=== PATIENT | male | born 1980 | race African-American/Black ===

== ENCOUNTER 2020-04-08 04:32 | Emergency (ER) | payer SELFPAY ==
[~2020-04-08] VITALS: Ht 185.4 cm; Wt 108.9 kg
--- NOTE | 2020-04-08 05:45 | NUR ---
PT BIBSELF C/O MIDEPIGASTRIC PAIN X2 WEEKS. PT AAOX4. RESPIRATIONS EVEN AND UNLABORED. SKIN WARM AND INTACT. VITAL SIGNS STABLE. NO ACUTE DISTRESS NOTED AT THIS TIME. PENDING MD MARSHALL, WILL CONTINUE TO MONITOR
[2020-04-08] MEDS ORDERED: LIDOCAINE VISCOUS 2% UD 15 ML UDC ONE (06:24)
[2020-04-08] MEDS ORDERED: MAG HYDROX/AL HYDROX/SIMETH 30 ML UDC ONE (06:24)
[2020-04-08] MEDS ORDERED: FAMOTIDINE/PF INJ 20 MG/2 ML VIAL IV ONE (06:25)
--- NOTE | 2020-04-08 06:31 | NUR ---
IV INITIATED R HAND 20G. LABS DRAWN FROM SITE. TUBE COVERER AT BEDSIDE FOR COLLECTION. IV INTACT AND PATENT, PLACED ON SALINE LOCK
[2020-04-08] MEDS: LIDOCAINE VISCOUS 2% UD 15 ML UDC MM ONE (06:35)
[2020-04-08] MEDS: MAG HYDROX/AL HYDROX/SIMETH 30 ML UDC PO ONE (06:35)
[2020-04-08] MEDS: FAMOTIDINE/PF INJ 20 MG/2 ML VIAL IV ONE (06:37)
--- NOTE | 2020-04-08 06:38 | NUR ---
RADIOLOGY AT BEDSIDE FOR XRAY
[2020-04-08 06:42] LABS: BASOPHILS % (AUTO) 0.7 % (0.0-2.0); EOSINOPHILS % (AUTO) 3.8 % (0.0-6.0); HEMATOCRIT 37 % (39-51); HEMOGLOBIN 11.8 g/dL (13.5-17.5); LYMPHOCYTES # (AUTO) 1.3 /CMM (0.8-4.8); LYMPHOCYTES % (AUTO) 37.5 % (20.0-44.0); MEAN CORPUSCULAR HGB CONC 32 g/dl (31.0-36.0); MEAN CORPUSCULAR VOLUME 81 fL (80-96); MONOCYTES # (AUTO) 0.3 /CMM (0.1-1.30); MONOCYTES % (AUTO) 9.3 % (2.0-12.0); NEUTROPHILS # (AUTO) 1.7 /CMM (1.8-8.9); NEUTROPHILS % (AUTO) 48.7 % (43.0-81.0); PLATELET COUNT (AUTO) 230 /CMM (150-450); RED BLOOD CELL COUNT(AUTO) 4.49 MIL/uL (4.5-6.0); WHITE BLOOD COUNT (AUTO) 3.5 K/uL (4.3-11.0)
[2020-04-08 06:54] LABS: ALBUMIN 3.3 g/dL (3.4-5.0); BILIRUBIN,DIRECT 0.1 mg/dL (0.0-0.2); BILIRUBIN,TOTAL 0.5 mg/dL (0.2-1.0); CALCIUM, SERUM 8.5 mg/dL (8.5-10.1); CREATININE 0.9 mg/dL (0.6-1.3); POTASSIUM 3.8 mmol/L (3.5-5.1); TOTAL PROTEIN, SERUM 6.8 g/dL (6.4-8.2)
[2020-04-08 07:36] VITALS: BP 127/89
--- NOTE | 2020-04-08 07:36 | NUR ---
Patient discharged to home in stable condition. Written and verbal after care instructions given. Patient verbalizes understanding of instruction.IV removed. Catheter intact and site benign. Pressure and 4x4 applied to site. No bleeding noted.Pt ambulatory with a steady gait
== END 2020-04-08 07:37 | disposition home or self-care (01) ==
LOC: ER 04:32
DX: R10.13 Epigastric pain (principal); F15.10 Other stimulant abuse, uncomplicated
CPT/HCPCS: 36415; 71045; 80048; 80076; 83690; 85025; 96374; 99284; J3490

== ENCOUNTER 2020-07-19 12:57 | Emergency (ER) | payer SELFPAY ==
[~2020-07-19] VITALS: Ht 185.4 cm; Wt 99.8 kg
--- NOTE | 2020-07-19 13:20 | NUR ---
EPIGASTRIC PAIN SINCE LAST NIGHT. TOOK PEPCID W/ NO RELIEF. PATIENT A/OX4, BREATHING EVEN AND UNLABORED, NO SOB NOTED. NEEDS ATTENDED. PLACED ON THE WATER SUPPLY ENGINEER.
[2020-07-19 14:05] LABS: BASOPHILS % (AUTO) 0.7 % (0.0-2.0); EOSINOPHILS % (AUTO) 2.1 % (0.0-6.0); HEMATOCRIT 33 % (39-51); HEMOGLOBIN 10.3 g/dL (13.5-17.5); MEAN CORPUSCULAR HGB CONC 32 g/dl (31.0-36.0); MEAN CORPUSCULAR VOLUME 77 fL (80-96); MONOCYTES # (AUTO) 0.2 /CMM (0.1-1.30); MONOCYTES % (AUTO) 6.6 % (2.0-12.0); NEUTROPHILS # (AUTO) 2.2 /CMM (1.8-8.9); NEUTROPHILS % (AUTO) 61.6 % (43.0-81.0); PLATELET COUNT (AUTO) 266 /CMM (150-450); RED BLOOD CELL COUNT(AUTO) 4.26 MIL/uL (4.5-6.0); WHITE BLOOD COUNT (AUTO) 3.6 K/uL (4.3-11.0)
[2020-07-19 14:18] LABS: ALBUMIN 3.2 g/dL (3.4-5.0); BILIRUBIN,DIRECT 0.1 mg/dL (0.0-0.2); BILIRUBIN,TOTAL 0.5 mg/dL (0.2-1.0); CALCIUM, SERUM 8.6 mg/dL (8.5-10.1); CREATININE 0.9 mg/dL (0.6-1.3); POTASSIUM 3.7 mmol/L (3.5-5.1); TOTAL PROTEIN, SERUM 7.1 g/dL (6.4-8.2)
[2020-07-19] MEDS ORDERED: PANTOPRAZOLE 40 MG TABLET.DR PO ONE ×2 (14:57→15:00)
[2020-07-19] MEDS ORDERED: PANT20TA2 PO (15:53)
--- NOTE | 2020-07-19 16:28 | NUR ---
PATIENT A/OX4, AMBULATORY WITH STEADY GAIT. NO DISTRESS NOTED. BREATHING EVEN AND UNLABORED. Patient discharged to home in stable condition. Written and verbal after care instructions given. Patient verbalizes understanding of instruction.
[2020-07-19 16:29] VITALS: BP 141/95
== END 2020-07-19 16:29 | disposition home or self-care (01) ==
LOC: ER 12:59
DX: R10.13 Epigastric pain (principal); R10.11 Right upper quadrant pain; D64.9 Anemia, unspecified; D72.819 Decreased white blood cell count, unspecified; Z98.890 Other specified postprocedural states; Z79.899 Other long term (current) drug therapy
CPT/HCPCS: 36415; 76705-TC; 80048-TC; 80076-TC; 83690-TC; 85025-TC